=== PATIENT | male | born 1995 | race Caucasian/White ===

== ENCOUNTER 2019-02-11 06:47 | Emergency (ER) | payer MEDICAID ==
[~2019-02-11] VITALS: Ht 175.3 cm; Wt 64.0 kg
[2019-02-11] MEDS ORDERED: IBUPROFEN 800MG TABLET PO ONE (07:30)
[2019-02-11 08:35] VITALS: BP 118/70
== END 2019-02-11 08:37 | disposition home or self-care (01) ==
LOC: ER 06:47
DX: M25.512 Pain in left shoulder (principal); J45.909 Unspecified asthma, uncomplicated; F12.10 Cannabis abuse, uncomplicated; F14.10 Cocaine abuse, uncomplicated; F15.10 Other stimulant abuse, uncomplicated
CPT/HCPCS: 73030; 99283

== ENCOUNTER 2019-08-21 17:14 | Emergency (ER) | payer MEDICAID ==
[~2019-08-21] VITALS: Ht 180.3 cm; Wt 64.0 kg
[2019-08-21] MEDS ORDERED: HYDROCODONE/ACETAMINOPHEN 5/325MG TABLET PO ONE (19:45)
[2019-08-21 21:45] VITALS: BP 145/96
== END 2019-08-21 21:49 | disposition home or self-care (01) ==
LOC: ER 17:14
DX: S62.313A Displaced fracture of base of third metacarpal bone, left hand, initial encounter for closed fracture (principal); M25.532 Pain in left wrist; J45.909 Unspecified asthma, uncomplicated; F12.10 Cannabis abuse, uncomplicated; W01.0XXA Fall on same level from slipping, tripping and stumbling without subsequent striking against object, initial encounter; Y93.89 Activity, other specified; Y92.018 Other place in single-family (private) house as the place of occurrence of the external cause
CPT/HCPCS: 29130; 73110; 73130; 99283

== ENCOUNTER 2022-03-17 04:12 | Emergency (ER) | payer MEDICAID ==
[~2022-03-17] VITALS: Ht 180.3 cm; Wt 68.0 kg
[2022-03-17] MEDS ORDERED: IBUPROFEN 600MG TABLET PO STA (04:50)
[2022-03-17 05:39] LABS: CLARITY URINE CLEAR (CLEAR); COLOR URINE YELLOW (YELLOW); KETONES URINE NEGATIVE (NEGATIVE); LEUKOCYTE ESTERASE URINE NEGATIVE (NEGATIVE); NITRITE URINE NEGATIVE (NEGATIVE); OCCULT BLOOD URINE NEGATIVE (NEGATIVE); PH URINE 5.5 (4.5-8.0); PROTEIN URINE NEGATIVE (NEGATIVE); SPECIFIC GRAVITY URINE 1.022 (1.005-1.030)
[2022-03-17] MEDS ORDERED: NAPR-681 PO (06:51)
[2022-03-17 07:07] VITALS: BP 122/88
== END 2022-03-17 07:06 | disposition home or self-care (01) ==
LOC: ER 04:12
DX: N43.3 Hydrocele, unspecified (principal); N43.40 Spermatocele of epididymis, unspecified; F12.10 Cannabis abuse, uncomplicated; Z98.890 Other specified postprocedural states
CPT/HCPCS: 76870; 81003; 93976; 99284